=== PATIENT | male | born 1960 | race Caucasian/White ===

== ENCOUNTER 2016-07-10 12:04 | Emergency (ER) | payer OTHER ==
[~2016-07-10 12:04] MED LIST: AMLO1CAP8 PO; ASPI81TA2 PO; HYDR25TA9 PO; SIMV20TA PO
[2016-07-10] MEDS ORDERED: KETOROLAC 30 MG/ML VIAL. IV ONE ×2 (12:45→13:00)
[2016-07-10] MEDS ORDERED: FENTANYL PF 100 MCG/2 ML VIAL. IV ONE (12:45)
[2016-07-10] MEDS ORDERED: ONDANSETRON PF 4 MG/2 ML VIAL. IV ONE (12:45)
[2016-07-10] MEDS ORDERED: IV NORMAL SALINE 1,000ML 1,000 ML IV ONE (13:00)
[2016-07-10 13:17] LABS: BASO % 2 % (0-3); EOS % 1 % (0-3); HEMOGLOBIN 14.3 g/dL (13.0-17.5); LYMPH # 0.7 x10^3/uL (1.0-4.8); LYMPH % 30 % (24-48); MEAN CORPUSCULAR HEMOGLOBIN 30 pg (25-35); MEAN CORPUSCULAR HGB CONC 35 g/dL (31-37); MEAN CORPUSCULAR VOLUME 85 fL (79-100); MONO # 0.3 x10^3/uL (0.0-1.1); MONO % 14 % (0-9); NEUT # 1.3 x10^3uL (1.8-7.7); NEUT % 54 % (31-73); PLATELET COUNT 175 x10^3/uL (140-400); RED BLOOD COUNT 4.82 x10^6/uL (4.30-5.70); RED CELL DISTRIBUTION WIDTH 12.8 % (11.5-14.5); WHITE BLOOD COUNT 2.4 x10^3/uL (4.0-11.0)
[2016-07-10 13:27] LABS: MONONUCLEOSIS PATIENT NEGATIVE (NEGATIVE)
[2016-07-10 13:30] LABS: ALBUMIN 3.4 g/dL (3.4-5.0); ALBUMIN/GLOBULIN RATIO 0.8 (1.0-1.7); C REACTIVE PROTEIN 1.6 mg/L (0-3.3); CALCIUM 8.6 mg/dL (8.5-10.1); CREATININE 1.3 mg/dL (0.7-1.3); GFR 57.7; TOTAL BILIRUBIN 0.4 mg/dL (0.2-1.0); TOTAL PROTEIN 7.8 g/dL (6.4-8.2)
[2016-07-10 13:31] LABS: POTASSIUM 2.9 mmol/L (3.5-5.1)
--- NOTE | 2016-07-10 13:47 | RAD ---
Clinical indications: Fever and headache and dizziness for one week. Technique: Noncontrast axial cross sectional scanning of the head was performed. PQRS Compliance Statement: One or more of the following individualized dose reduction techniques were utilized for this examination: 1. Automated exposure control 2. Adjustment of the mA and/or kV according to patient size 3. Use of iterative reconstruction technique Comparison: None available. Findings: No acute intracranial hemorrhage or midline shift or mass-effect or hydrocephalus or extra-axial fluid collection is seen. No focal hypodense area or sulci effacement is seen to indicate an acute infarct or edema radiographically. No skull fracture or pneumocephalus is seen. No opacification of the mastoid sinuses or the middle ear cavities or the paranasal sinuses is seen. The maxillary sinuses are not completely seen in this study. Impression: No acute intracranial abnormality is seen.
--- NOTE | 2016-07-10 13:49 | RAD ---
2 view CXR: Clinical indications: Cough and fever for one week. Findings: No acute lung infiltrate or pleural effusion or pulmonary edema or lung mass or pneumothorax is seen. The heart size, pulmonary vasculature, mediastinum and both robin are unremarkable. The osseous structures appear intact. Impression: No acute radiographic abnormality is seen.
[2016-07-10 14:03] LABS: % ATYL 1 % (0-0); % BANDS 17 % (0-9); % BASOS 1 % (0-3); % EOS 0 % (0-5); % LYMPHS 26 % (24-48); % METAS 1 % (0-0); % MONOS 12 % (0-10); % SEGS 42 % (35-66); PLT ESTIMATE ADEQUATE (ADEQUATE); TOXIC VACUOLATION PRESENT
[2016-07-10] MEDS ORDERED: POTASSIUM BICARB 25 MEQ EFFERVESCENT TAB. PO SCH (14:30)
[2016-07-10 14:46] VITALS: BP 118/73
[2016-07-10 14:50] LABS: INFLUENZA A PATIENT NEGATIVE (NEGATIVE); INFLUENZA B PATIENT NEGATIVE (NEGATIVE)
--- NOTE | 2016-07-10 15:41 | ED.ADGEN ---
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 Patient returned from [facility] 2 weeks ago. One week after returning to [place], he discovered a tick embedded in his abdomen which he then removed. Approximately 2 days after discovering removing the tape, the patient developed admit daily fevers ranging from 100-101.6, myalgias, headaches, photophobia and arthralgias. Patient has been seen twice by his PCP for the same symptoms. He was seen 5 days ago and yesterday or tickborne illnesses. He was started on doxycycline and has completed 5 days. He has reportedly tested negative for Lyme disease with additional tick borne pathogen testing pending. Patient was instructed by his PCP to ER for further evaluation given the persistence of symptoms. Patient denies cough, sore throat, chest pain, shortness of breath. Denies rash. No other acute symptoms or complaints. She has nonsmoker and drinks occasional alcohol. Review of Systems Review of Systems Review symptoms as per history of present illness. All other review symptoms are negative. Current Medications Current Medications Current Medications Medications (Trade) Dose Ordered Sig/Barbara Start Time Stop Time Status Last Admin Dose Admin Fentanyl Citrate 75 mcg 75 mcg 1X ONCE 07/10/16 12:45 07/10/16 12:47 DC 07/10/16 12:56 75 MCG Ketorolac Tromethamine (Toradol) 30 mg 1X ONCE 07/10/16 13:00 07/10/16 13:06 DC Ondansetron HCl (Zofran) 4 mg 1X ONCE 07/10/16 12:45 07/10/16 12:47 DC 07/10/16 12:53 4 MG Potassium Bicarbonate (Klyte/Cl) 50 meq DAILY 07/10/16 14:30 07/10/16 14:38 50 MEQ Sodium Chloride (Iv Sodium Chloride 0.9% 1,000ml) 1,000 ml @ 1,000 mls/hr 1X ONCE 07/10/16 13:00 07/10/16 13:59 DC 07/10/16 13:37 1,000 MLS/HR Allergies Allergies Allergies Coded Allergies Type Severity Reaction Last Updated Verified No Known Drug Allergies 03/07/14 No Physical Exam Physical Exam Constitutional: Well developed, well nourished, no acute distress, non-toxic appearance. HENT: Normocephalic, atraumatic, bilateral external ears normal, oropharynx moist. Eyes: PERRLA, EOMI, conjunctiva normal. Neck: Normal range of motion, no tenderness. Cardiovascular:Heart rate regular rhythm, no murmur. Lungs & Thorax: Bilateral breath sounds clear to auscultation. Abdomen: Bowel sounds normal, soft, no tenderness. Skin: Warm, dry, no erythema. Back: No tenderness. Extremities: No tenderness. Neurologic: Alert and oriented X 3, normal motor function, normal sensory function, no focal deficits noted. Psychologic: Affect normal, judgement normal, mood normal. Current Patient Data Vital Signs Vital Signs Date Time Temp Pulse Resp B/P Pulse Ox O2 Delivery O2 Flow Rate FiO2 07/10/16 14:46 99.0 77 18 118/73 95 07/10/16 12:56 Room Air Lab Results Laboratory Tests Test 07/10/16 13:05 07/10/16 13:55 White Blood Count 2.4x10^3/uL (4.0-11.0) L Red Blood Count 4.82x10^6/uL (4.30-5.70) Hemoglobin 14.3g/dL (13.0-17.5) Hematocrit 41.0% (39.0-53.0) Mean Corpuscular Volume 85fL (79-100) Mean Corpuscular Hemoglobin 30pg (25-35) Mean Corpuscular Hemoglobin Concent 35g/dL (31-37) Red Cell Distribution Width 12.8% (11.5-14.5) Platelet Count 175x10^3/uL (140-400) Neutrophils (%) (Auto) 54% (31-73) Lymphocytes (%) (Auto) 30% (24-48) Monocytes (%) (Auto) 14% (0-9) H Eosinophils (%) (Auto) 1% (0-3) Basophils (%) (Auto) 2% (0-3) Neutrophils # (Auto) 1.3x10^3uL (1.8-7.7) L Lymphocytes # (Auto) 0.7x10^3/uL (1.0-4.8) L Monocytes # (Auto) 0.3x10^3/uL (0.0-1.1) Eosinophils # (Auto) 0.0x10^3/uL (0.0-0.7) Basophils # (Auto) 0.0x10^3/uL (0.0-0.2) Segmented Neutrophils % 42% (35-66) Band Neutrophils % 17% (0-9) H Lymphocytes % 26% (24-48) Atypical Lymphocytes % (Manual) 1% (0-0) H Monocytes % 12% (0-10) H Eosinophils % 0% (0-5) Basophils % 1% (0-3) Metamyelocytes % 1% (0-0) H Toxic Vacuolation Present Platelet Estimate Adequate (ADEQUATE) Sodium Level 135mmol/L (136-145) L Potassium Level 2.9mmol/L (3.5-5.1) *L Chloride Level 98mmol/L (98-107) Carbon Dioxide Level 30mmol/L (21-32) Anion Gap 7 (6-14) Blood Urea Nitrogen 19mg/dL (8-26) Creatinine 1.3mg/dL (0.7-1.3) Estimated GFR (Cockcroft-Gault) 57.7 BUN/Creatinine Ratio 15 (6-20) Glucose Level 109mg/dL (70-99) H Calcium Level 8.6mg/dL (8.5-10.1) Total Bilirubin 0.4mg/dL (0.2-1.0) Aspartate Amino Transferase (AST) 26U/L (15-37) Alanine Aminotransferase (ALT) 26U/L (16-63) Alkaline Phosphatase 74U/L (46-116) C-Reactive Protein 1.6mg/L (0-3.3) Total Protein 7.8g/dL (6.4-8.2) Albumin 3.4g/dL (3.4-5.0) Albumin/Globulin Ratio 0.8 (1.0-1.7) L Heterophil Agglutinins Negative (NEGATIVE) Influenza Type A (Rapid) Negative (NEGATIVE) Influenza Type B (Rapid) Negative (NEGATIVE) EKG EKG [] Radiology/Procedures Radiology/Procedures [CT head: No acute disease Chest x-ray: No acute cardiopulmonary disease per radiology report. Lumbar puncture procedure note Indication: Fever, headache Consent: Obtained and running after for risks and benefits explained to patient in detail Anesthesia: 5 mL's of lidocaine 2% without epinephrine Performing physician: Dr. Arturo Rausch She was placed in a seated provided position with his back exposed didn't oma toward the examiner. She was draped and prepped in the usual manner. Landmarks 3 used to identify the L3-L4 spinous processes. After satisfactory level anesthesia is obtained, a 22-gauge 3-1/2 inch continue was cautiously introduced into space. Upon second attempt, the epidural space was located and approximately 5 mL of clear CSF fluid was obtained. The needle was then removed and bandage was placed over the insertion site. Patient was struck to to lay supine for an hour pending lab results. The patient tolerated the procedure well without complication.] Impressions: Fever with vague numbness to prescription symptoms in the setting of recent tick exposure. Hypokalemia, patient currently on diuretic therapy. Course & Med Decision Making Course & Med Decision Making Pertinent Labs and Imaging studies reviewed. (See chart for details) [Patient leukopenic with elevated monocytes just above viral or tickborne illness. Chest x-ray, CT head nonacute. Lumbar puncture performed to facilitate inpatient workup. CSF results pending and to be reviewed on [facility] arrival. Dr. Castaneda on-call accepts to [facility] with anticipated infectious disease consult. Patient is currently on doxycycline, will defer abx decision to accepting physician. ] Final Impression Final Impression [1. Fever of unknown origin 2. Hypokalemia] Problems: Dragon Disclaimer Dragon Disclaimer This electronic medical record was generated, in whole or in part, using a voice recognition dictation system. ARTURO RAUSCH DO Jul 10, 2016 15:41
[2016-07-10 15:46] LABS: CSF PROTEIN 41.2 mg/dL (15.0-45.0)
[2016-07-10 16:16] LABS: CSF CLARITY CLEAR; CSF COLOR COLORLESS
[2016-07-10 16:31] LABS: CSF RBC COUNT 0; CSF WBC COUNT 0
== END 2016-07-10 15:22 | disposition short-term general hospital (02) ==
LOC: ER 12:04
DX: R50.9 Fever, unspecified (principal); E87.6 Hypokalemia; R51 Headache; I10 Essential (primary) hypertension
CPT/HCPCS: 36415; 62270; 70450; 71020; 80053; 82945; 84157; 85007; 85027; 86140; 86308; 87040; 87804; 89051; 96361; 96374; 96375; 99285; J1885; J2405; J3010; J7030